=== PATIENT | female | born 1945 | race Caucasian/White ===

== ENCOUNTER 2021-10-05 06:06 | Day surgery (SDC) | payer OTHER ==
[2021-10-02 17:16] VITALS: BMI 27.4
[2021-10-05] MEDS ORDERED: MIDAZOLAM HCL 2 MG/2 ML SINGLE DOSE VIAL ONE (07:37)
[2021-10-05] MEDS ORDERED: ROPIVACAINE HCL/PF 100 MG/20 ML VIAL ONE (07:38)
[2021-10-05] MEDS ORDERED: LIDOCAINE HCL/PF 2% SDV 5ML VIAL ONE (08:09)
[2021-10-05] MEDS ORDERED: ceFAZolin SODIUM 1 GM VIAL ONE (08:09)
[2021-10-05] MEDS ORDERED: PROPOFOL 20 ML ONE (08:10)
[2021-10-05] MEDS ORDERED: ONDANSETRON 4 MG/2 ML VIAL ONE (08:29)
[2021-10-05] MEDS ORDERED: DEXAMETHASONE SOD PHOSPHATE 4 MG/1 ML VIAL ONE (08:29)
[2021-10-05] MEDS ORDERED: IBUPROFEN 800 MG/8 ML IJ IVPB PRN (09:36)
[2021-10-05] MEDS ORDERED: oxyCODONE HCL 5 MG TABLET PO PRN (09:36)
[2021-10-05] MEDS ORDERED: ONDANSETRON 4 MG/2 ML VIAL IVPUSH PRN (09:36)
[2021-10-05] MEDS ORDERED: LACTATED RINGERS SOLUTION 1,000 ML IV SCH (09:45)
[2021-10-05 10:49] VITALS: TEMP 97.8
[2021-10-05 11:20] VITALS: BP 120/64; PULSE 66
== END 2021-10-05 11:20 | disposition home or self-care (01) ==
LOC: FASU 06:06
PROVIDERS: ATTEND Orthopaedic Surgery
PROC: 0PSJ04Z Reposition Left Radius with Internal Fixation Device, Open Approach (ICD-10-PCS; principal; 2021-10-05 08:31)
DX: S52.572A Other intraarticular fracture of lower end of left radius, initial encounter for closed fracture (principal); X58.XXXA Exposure to other specified factors, initial encounter; Y93.9 Activity, unspecified; Y92.9 Unspecified place or not applicable
CPT/HCPCS: 73110-TC-LT-FY; 82962; 94760